=== PATIENT | male | born 1960 | race Caucasian/White ===

== ENCOUNTER 2025-04-06 07:22 | Day surgery (SDC) | payer MEDICARE, BC ==
[2025-04-06] MEDS ORDERED: Sodium Chloride 0.9% 10 ML Syringe FLUSH PRN (07:24)
[2025-04-06] MEDS ORDERED: Lidocaine 1% 4 ML ONE (07:38)
[2025-04-06] MEDS ORDERED: Propofol 200 MG/20 ML SDV ONE (07:38)
[2025-04-06] MEDS: Lactated Ringers 1,000 ML IV SCH (07:42)
== END 2025-04-06 09:29 | disposition home or self-care (01) ==
LOC: JD.SDS 07:22
PROVIDERS: ATTEND Surgery
DX: Z12.11 Encounter for screening for malignant neoplasm of colon (principal); D12.5 Benign neoplasm of sigmoid colon; R19.5 Other fecal abnormalities
CPT/HCPCS: 45385; J2003; J2704; J7120; 00811; 88305